=== PATIENT | female | born 1945 | race Asian ===

== ENCOUNTER → 2022-07-22 14:35 | Outpatient (CLI) | payer MEDICARE, OTHER, SELFPAY ==
--- NOTE | 2022-07-22 | DI.ECHO.S_ITS ---
[facility] +---------+ : : [address] : [place] : : : : [id number] : : : : Phone: [phone]+ Echocardiogram Report + + :Name: PATTI REESE Study Date: 07/22/2022 Height: 64 in : :[facility] ReadingLocation: Weight: 142 lb : : Gender: Female BSA: 1.7 m2 : :: 1945 Age: 76 yrs BP: 118/68 mmHg: :Reason For Study: Status post Mitral clip : :Ordering Physician: Juan : :Willie Marcos Performed By: Melida Boss : :Referring: JUAN MARCOS : + + Interpretation Summary 1) Normal left ventriuclar size, thickness, wall motion, and systolic function (EF 60-65%). 2) Normal right ventricular size and function. 3) The left atrium is moderately dilated. 4) A mitral valve clip is present (presumably to fix the valve prolapse). 5) There is mild to moderate mitral regurgitation. 6) The right ventricular systolic pressure is estimated to be at least 33 mmHg based on an estimated right atrial pressure of 3 mm Hg. 7) No prior Echo available for comparison. Procedure: A two-dimensional transthoracic echocardiogram with color flow and Doppler was performed. The study quality was technically adequate. There has been no significant change since the previous study. The patient was in sinus rhythm with heart rates between 59-64 bpm during the exam. Left Ventricle: The left ventricle is normal in size and wall thickness. The ejection fraction is estimated to be 60-65%. Diastolic parameters suggest a relaxation abnormality of the left ventricle, consistent with probable normal filling pressures. Right Ventricle: The right ventricle is normal in size and function. Atria: The left atrium is moderately dilated. Right atrial size is normal. There is no Doppler evidence for an interatrial shunt. Mitral Valve: A mitral valve clip is present. The mitral valve mean gradient is 2 mmHg. There is mild to moderate mitral regurgitation. Aortic Valve: The aortic valve is normal in structure and function. There is no aortic valve stenosis. There is trace aortic regurgitation. Tricuspid Valve: The tricuspid valve is normal in structure and function. There is mild tricuspid regurgitation. The right ventricular systolic pressure is estimated to be at least 33 mmHg based on an estimated right atrial pressure of 3 mm Hg. Pulmonic Valve: The pulmonic valve leaflets are thin and pliable; valve motion is normal. There is a trace or physiologic amount of pulmonic regurgitation. Great Vessels: The ascending aorta is normal in size. The pulmonary artery is normal size. The IVC is of normal diameter and collapses greater than 50% with a sniff. This suggests a low right atrial pressure of 3 mm Hg. MMode/2D Measurements & Calculations LVIDd: 4.9 cm LVOT diam: 1.8 cm LVIDs: 3.1 cm Ao root diam: 3.2 cm FS: 36.7 % asc Aorta Diam: 3.4 cm IVSd: 0.90 cm LVPWd: 1.0 cm LV morfin. diameter/BSA (cm/m^2): 2.9 LV sys. diameter/BSA (cm/m^2): 1.8 LA dimension: 5.1 cm RA long axis: 4.5 cm LA A2 area: 22.3 cm2 RA area: 14.5 cm2 LA A4 area: 17.5 cm2 RA vol: 39.3 ml LA length (vol): 5.2 cm RA : 23.2 ml/m2 LA vol: 63.3 ml IVC diam: 1.2 cm LA vol index: 37.5 ml/m2 RVD1 (basal): 3.0 cm LVLs ap4: 5.8 cm LVLd ap2: 6.5 cm TAPSE_phl: 2.8 cm LVLs ap2: 5.6 cm Doppler Measurements & Calculations Ao V2 max: 129.0 cm/sec LVOT Max Coleman: 91.6 cm/sec Ao V2 mean: 76.7 cm/sec LV V1 max P.4 mmHg Ao max P.0 mmHg LV V1 VTI: 20.6 cm Ao mean P.0 mmHg LIZZETTE(I,D): 2.2 cm2 Ao V2 VTI: 23.9 cm LIZZETTE(V,D): 1.8 cm2 sev ratio: 0.86 LIZZETTE indexed to BSA (cm^2/m^2): 1.3 MV E max coleman: 95.1 cm/sec TR max coleman: 274.0 cm/sec MV A max coleman: 109.0 cm/sec TR max P.0 mmHg MV E/A: 0.87 PA V2 max: 78.6 cm/sec Med Peak E' Coleman: 4.9 cm/sec PA V2 mean: 51.0 cm/sec E/E' med: 19.3 PA mean P.0 mmHg Lat Peak E' Coleman: 6.5 cm/sec E/E' lat: 14.7 E/e' average: 17.0 MV dec time: 0.38 sec MVA(VTI): 1.3 cm2 MV V2 mean: 72.6 cm/sec SV(LVOT): 52.4 ml MV mean P.0 mmHg MV V2 VTI: 39.0 cm AV VR_phl: 0.71 MV P1/2t-pr_phl: 111.0 msec LIZZETTE(VTI)/BSA_phl: 1.3 Reading Physician:09:30 AM
== END ==
PROVIDERS: Referring Provider Internal Medicine Cardiovascular Disease; Visit Provider Internal Medicine Cardiovascular Disease
DX: Z98.890 Other specified postprocedural states (principal); Z95.818 Presence of other cardiac implants and grafts; I08.1 Rheumatic disorders of both mitral and tricuspid valves
CPT/HCPCS: 93306